=== PATIENT | male | born 1970 | race Caucasian/White ===

== ENCOUNTER → 2020-02-29 15:45 | Outpatient (CLI) | payer OTHER, SELFPAY ==
--- NOTE | ~2020-02-29 | US_ITS ---
EXAMINATION: US aorta EXAM DATE: 02/29/2020 16:01 INDICATION: Family history of abdominal aortic aneurysm. TECHNIQUE: Multiple grayscale and Doppler images of the aorta were obtained (by a technologist who pe rformed the scan) and subsequently reviewed. Comparison is made to prior examination from 03/23/2017. FINDINGS: The abdominal aorta measures 2.3 cm x 2.7 cm proximally, 2.0 by 1.7 mid aspect, 1.9 x 1.7 cm distall y normal right and left common iliac arteries. No appreciable arterial sclerotic disease. IMPRESSION: 1. Normal abdominal aorta. Reviewed, dictated and finalized at location G. IMPRESSION: 1. Normal abdominal aorta.
== END ==
PROVIDERS: PCP Family Medicine Adolescent Medicine; Visit Provider Family Medicine Adolescent Medicine
DX: Z82.49 Family history of ischemic heart disease and other diseases of the circulatory system (principal)
CPT/HCPCS: 76775

== ENCOUNTER 2021-02-11 18:44 | Emergency (ER) | payer OTHER, SELFPAY ==
--- NOTE | ~2021-02-11 | CT_ITS ---
EXAMINATION: CT abdomen pelvis wo con DATE: 02/11/2021 22:15 INDICATION: Left lower quadrant and lower back pain TECHNIQUE: Computed tomography (CT) of the abdomen and pelvis was performed without intravenous contr ast. The dose-length product (DLP) was 804.25 mGy-cm. Automated exposure control and iterative recons truction technique were employed. COMPARISON: None FINDINGS: The lung bases are clear. The heart size is normal. Punctate calcifications in an otherwise normal spleen likely represent healed granulomatous disease. The liver, pancreas, gallbladder, and a drenal glands are normal. The right kidney is unremarkable. There is a 2 mm stone in the distal left ureter which causes moderate left hydroureteronephrosis. No pathologically enlarged abdominal or pelv ic lymph nodes are identified. There is no free intraperitoneal gas or evidence of bowel obstruction. The appendix is normal. There is moderate lumbar spondylosis at L5-S1. IMPRESSION: 1. 2 mm stone of the distal left ureter causing moderate left hydroureteronephrosis. Reviewed, dictated and finalized at location A. IMPRESSION: 1. 2 mm stone of the distal left ureter causing moderate left hydroureteronephr osis.
[2021-02-11 19:33] VITALS: BP 149/79; PULSE 68; RESP 25; TEMP 36.4; O2SAT 99
[2021-02-11 19:58] LABS: Basophils Percent Auto 0.3 % (0.2-1.2); Eosinophils Absolute Auto 0.3 K/mm3 (0-0.3); Eosinophils Percent Auto 1.9 % (0-4.4); Hematocrit 46.2 % (42.0-52.0); Hemoglobin 15.5 g/dL (14.0-18.0); Immature Granulocyte Absolute 0.07 K/mm3 (0.00-0.031); Immature Granulocyte Percent A 0.5 % (0-0.5); Lymphocytes Absolute Auto 1.77 K/mm3 (0.9-3.2); Lymphocytes Percent Auto 12.9 % (18.3-44.2); Mean Corpuscular HGB Conc 33.5 g/dl (32-36); Mean Corpuscular Hemoglobin 29.4 pg (26-34); Mean Corpuscular Volume 87.5 fl (80-100); Mean Platelet Volume 9.3 fl (7.4-10.4); Monocytes Absolute Auto 0.6 K/mm3 (0.1-0.6); Monocytes Percent Auto 4.7 % (2.6-8.5); Neutrophils Absolute Auto 10.9 K/mm3 (1.3-6.7); Neutrophils Percent Auto 79.7 % (45.5-73.1); Platelet Count Result 244 k/mm3 (150-375); Red Blood Count 5.28 M/mm3 (4.6-6.20); Red Cell Distribution Width 13.7 % (11.5-14.5); White Blood Count 13.7 K/mm3 (4.5-10.0)
[2021-02-11 20:39] LABS: Anion Gap 7 mmol/L (8-16); Blood Urea Nitrogen 19 mg/dL (9-20); Calcium 9.3 mg/dL (8.4-10.2); Carbon Dioxide 24 mmol/L (22-30); Chloride 110 mmol/L (98-107); Estimated CRCL calculation 66 ml/min; Estimated Glomerular Filt Rate > 60; Glucose 144 mg/dL (65-110); Potassium 5.1 mmol/L (3.4-5.0); Sodium 141 mmol/L (137-145)
[2021-02-11 21:15] VITALS: BP 121/82; PULSE 68; RESP 18; O2SAT 100
[2021-02-11 21:31] LABS: Add Urine Microscopic? YES; Appearance Urine Clear (Clear); Bilirubin Urine Negative (Negative); Blood Urine 2+ (Negative); Color Urine Yellow (Yellow); Glucose Urine UA Negative (Negative); Ketones Urine Trace mg/dL (Negative); Leukocyte Esterase Ur Negative LEU/UL (Negative); Mucus Urine Rare /lpf; Nitrate Urine Negative (Negative); Protein Urine 1+ mg/dL (Negative); RBC Urine >75 /hpf (0-2); Specific Grav Ur 1.024 (1.001-1.035); Squamous Epithelial Cell Urine Rare /hpf (Few); Urobilinogen Urine Negative mg/dL (<2.0)
--- NOTE | 2021-02-11 23:37 | ED.ABDPAIN ---
HPI - Abdominal Pain General Chief Complaint: Abdominal Pain Stated Complaint: L FLANK PAIN X 2.5HRS Time Seen by Provider: 02/11/21 21:56 Source: patient Mode of arrival: ambulatory Limitations: no limitations History of Present Illness HPI narrative: Patient is a 51 year old male who presents with left-sided back and abdominal pain that radiates into the left groin with sudden onset this p.m. Patient reports earlier nausea without vomiting, denies diarrhea. Denies urinary complaints at this time. Patient denies significant medical history. Patient denies taking joha-[id number]-guopcok medications for pain prior to arrival. Related Data Allergies Allergy/AdvReac Type Severity Reaction Status Date / Time No Known Allergies Allergy Verified 02/11/21 23:49 Review of Systems Review of Systems: Narrative: CONSTITUTIONAL: Denies fever, chills, or sweats. EYES: Denies visual changes, redness, or discharge. ENT: Denies rhinorrhea, congestion, sore throat, or otalgia. CARDIOVASCULAR: Denies chest pain, palpitations, or edema. RESPIRATORY: Denies cough or dyspnea. GASTROINTESTINAL: Denies abdominal pain, nausea, vomiting, or diarrhea. GENITOURINARY: Reports left flank and back pain that radiates to left groin SKIN: Denies rash or itching. MUSCULOSKELETAL: Denies back pain, joint pain, or myalgia. NEUROLOGIC: Denies headache, numbness, dizziness, or weakness. PSYCHIATRIC: Denies anxiety or depression. PMFSH Past Medical History Medical History No significant past medical history Surgical History Surgical History No significant past surgical history Social History Social History (Updated 02/11/21 @ 23:40 by GILSON Reid) Smoking status: Never smoker Alcohol intake: current Alcohol use details: Occasional Substance use: never Comments At the time of signature, I have reviewed and agree with nursing past medical, surgical, social, and family history unless otherwise noted. Please see nursing chart for further information. There is no relevant family history pertinent to the presenting complaint. Exam Narrative: Exam Narrative: GENERAL: Well-appearing, well-nourished, and in no acute distress. HEAD: Normocephalic, atraumatic. EYES: EOMI. No redness or drainage. Conjunctiva are normal. ENT: Mucous membranes pink and moist. CHEST: No respiratory distress. HEART: Regular rate and rhythm. GI: Soft, nontender without rebound, or guarding. : Mild left CVA tenderness with palpation EXTREMITIES: Normal range of motion. No edema. SKIN: Warm, dry, no rash. NEURO: No focal deficits. Alert and oriented x3. Gait steady. PSYCH: Normal affect. No signs of depression or anxiety. Course Vital Signs Vital signs: Vital Signs Temperature 36.4 C L 02/11/21 19:33 Pulse Rate 68 02/11/21 19:33 Respiratory Rate 25 H 02/11/21 19:33 Blood Pressure 149/79 H 02/11/21 19:33 Pulse Oximetry 99 02/11/21 19:33 Temperature 36.4 C L 02/11/21 19:33 Pulse Rate 68 02/11/21 21:15 Respiratory Rate 18 02/11/21 21:15 Blood Pressure 121/82 02/11/21 21:15 Pulse Oximetry 100 02/11/21 21:15 MDM - Abdominal Pain MDM Narrative Medical decision making narrative: Patient has 2 mm stone in distal ureter. Discussed with patient pain management as well as antiemetics and staying hydrated. Patient is denying pain at this time, resting comfortably. Vital signs stable. Patient to go home with pain medication, antiemetic, Flomax and follow-up with urology. Patient agrees with plan of care. Patient is stable for discharge home with outpatient follow-up as discussed. Lab Data Attestation: I reviewed the patient's lab results. Result diagrams: 02/11/21 19:50 02/11/21 19:50 Labs: Lab Results 02/11/21 02/11/21 02/11/21 Range/Units 19:50 19:50 21:13 WBC 13.7 H (4.
--- NOTE | 2021-02-12 00:04 | PC.NURSE ---
PT REFUSED PAIN MEDS OFFERED BY FRANCESCO PALUMBO NP. PT REQUESTING NURSE TO HAND HIM THE PERCOCET TO TAKE HOME WITH HIM FOR IF HE NEEDED IT IN THE MIDDLE OF THE NIGHT. THIS RN NOTIFIED PT THAT WAS NOT AN OPTION. PT UPSET BY THIS. RN EXPLAINED THE LOCATION OF MULTIPLE 24 HOUR PHARMACIES.
== END 2021-02-12 00:05 | disposition home or self-care (01) ==
LOC: ANHED 23:56
PROVIDERS: Emergency Medicine; Emergency Provider Nurse Practitioner; PCP Family Medicine Adolescent Medicine
DX: N13.2 Hydronephrosis with renal and ureteral calculous obstruction (principal)
CPT/HCPCS: 36415; 74176; 80048; 81001; 85025; 99284